=== PATIENT | male | born 1955 | race Caucasian/White ===

== ENCOUNTER → 2019-12-11 | Day surgery (SDC) | payer OTHER ==
[~2019-12-11] MED LIST: FENTANYL CITRATE/PF 100MCG/2 ML INJ ONE; MIDAZOLAM HCL 2 MG/2 ML VIAL ONE; OR PHACO EYE KIT ONE; PREOP PHACO EYE KIT ONE; PROTANDIM NRF PO
[2019-12-11 15:00] VITALS: BP 135/92
--- OUTSIDE RECORDS SUMMARY | 2019-12-11 19:39 | XMS REPORT | Encounter Summary ---
Author Organization Unknown Address [address] [place] [address] Phone [phone] Care Team Providers Care Exhibits Manager Name Role Phone Dr. Joaquin Baker 3 [phone] Shade Bowie MD 3 [phone] Flavio John MD 111 [phone] Reason for Visit UTI Instructions 1. Acute urinary tract infection urinalysis, dipstick culture, urine 2. Body mass index 25-29 - overweight learning about healthy weight 3. Raised prostate specific antigen PSA, serum or plasma Discussion Note await lab/will repeat psa 1 month if remains elevated Plan of Care Patient Instructions advised ua normal Reminders Provider Appointments None recorded. Lab Urinalysis, Dipstick 10/01/2019 [facility] Culture, Urine 10/01/2019 [facility] PSA, Serum or Plasma 10/01/2019 [facility] Referral None recorded. Procedures None recorded. Surgeries None recorded. Imaging None recorded. Medications No Medications Reported Medications Administered None recorded. Vitals Height Weight BMI Blood Pressure 5 ft 11.6 in 182.6 lbs 25 kg/m2 120/70 mm[Hg] Results Lab Results Date Name Specimen Result Interpretation Description Value Range Status Address 09/18/2019 Urinalysis, Dipstick Color Color obi [facility]: [address] [place] Color Appearance clear [facility]: [address] [place] Color Glucose negative [facility]: [address] [place] Color Bilirubin negative [facility] [address] [place] Color Ketones negative [facility] [address] [place] Color Specific [place] 1.020 [facility] [address] [place] Color Blood trace [facility] [address] [place] Color PH 5.5 [facility]: [address] [place] Color Protein negative [facility]: [address] [place] Color Urobilinogen 0.2 [facility]: [address] [place] Color Nitrites negative [facility]: [address] [place] Color Leukocytes small [facility]: [address] [place] 09/17/2019 PSA, Serum or Plasma High PSA, Total 16.85 NG/mL <4.00 NG/mL Final [facility]: [address] [address], [place] 09/17/2019 Culture, Urine ABNORMAL Culture, Urine, Routine see note Final [facility]: [address] [address], [place] Urinalysis, Dipstick Color Glucose negative [facility]: [address] [place] Color Bilirubin negative [facility]: [address] [place] Color Ketones negative [facility]: [address] [place] Color Specific Gary 1.020 [facility] [address] [place] Color Blood negative [facility]: [address] [place] Color PH 6.0 [facility]: [address] [place] Color Protein negative [facility]: [address] [place] Color Urobilinogen 0.2 [facility]: [address] [place] Color Nitrites negative [facility]: [address] [place] Color Leukocytes negative [facility]: [address] [place] Allergies Code Code System Name Reaction Severity Status Onset NKDA Problems Name Status Onset Date Source Scoliosis Deformity of Spine Active 07/26/2018 Procedures Date Name Performed by Colonoscopy Information not available Vaccine List None recorded. Social History Tobacco Smoking Status Never Smoker Past Encounters 10/01/2019 Acute Urinary Tract Infection; Body Mass Index 25-29 - Overweight; Raised Prostate Specific Antigen Joaquin Baker MD: [address] [place] [phone], Ph. 09/20/2019 Screening for Malignant Neoplasm of Colon; Body Mass Index 25-29 - Overweight; Influenza Vaccination Declined; Acute Urinary Tract Infection; Raised Prostate Specific Antigen Joaquin Baker MD: [address] [place] [phone], Ph. 09/17/2019 Body Mass Index 25-29 - Overweight; Prostatism; Bilateral Cataracts; Pigmented Skin Lesion Joaquin Baker MD: [address] [place] [phone], Ph. History of Present Illness Note:f/u uti >psa,completed course abx -asymptomatic Review of Systems:ROS as noted in the HPI Review of Systems None recorded. Physical Exam Brief Abdominal Pain Exam Reported By: Patient Constitutional: General Appearance: well-developed, well-nourished, healthy-appearing, alert, oriented, NAD, mucous membranes moist Cardiovascular: Heart Auscultation: S1 present, S2 present, no murmurs, no click Lungs: Lungs: clear to auscultation bilaterally, no wheezing, no crackles Abdomen: Inspection and Palpation: soft, bowel sounds 4 quadrants, no tenderness, non-distended
--- OUTSIDE RECORDS SUMMARY | 2019-12-11 19:39 | XMS REPORT | Encounter Summary ---
Author Organization Unknown Address [address] [place] [address] Phone [phone] Care Team Providers Care Student Ambassador Name Role Phone Dr. Joaquin Baker 3 [phone] Shade Bowie MD 3 [phone] Flavio John MD 111 [phone] Reason for Visit lab follow-up Instructions 1. Screening for malignant neoplasm of colon fecal occult blood, stool 2. Body mass index 25-29 - overweight learning about healthy weight 3. Influenza vaccination declined 4. Acute urinary tract infection Levaquin 500 mg tablet 5. Raised prostate specific antigen Discussion Note deferred advised urology consult Plan of Care Patient Instructions meds as directed/rtc 2 weeks Reminders Provider Appointments Return to Office on or around 10/01/2019 Joaquin Baekr MD Lab Fecal Occult Blood, Stool 09/20/2019 [facility] Referral None recorded. Procedures None recorded. Surgeries None recorded. Imaging None recorded. Medications Name Start Date Flomax 0.4 mg capsule Take 1 capsule every day by oral route. Levaquin 500 mg tablet Take 1 tablet every 24 hours by oral route. Medications Administered None recorded. Vitals Height Weight BMI Blood Pressure 5 ft 11.6 in 185.4 lbs 25.4 kg/m2 108/72 mm[Hg] Results Lab Results Date Name Specimen Result Interpretation Description Value Range Status Address 09/18/2019 Urinalysis, Dipstick Color Color obi [facility]: [address] [place] Color Appearance clear [facility]: [address] [place] Color Glucose negative [facility]: [address] [place] Color Bilirubin negative [facility]: [address] [place] Color Ketones negative [facility] [address] [place] Color Specific [place] 1.020 [facility] [address] [place] Color Blood trace [facility]: [address] [place] Color PH 5.5 [facility]: [address] [place] Color Protein negative [facility]: [address] [place] Color Urobilinogen 0.2 [facility]: [address] [place] Color Nitrites negative [facility]: [address] [place] Color Leukocytes small [facility]: [address] [place] 09/17/2019 PSA, Serum or Plasma High PSA, Total 16.85 NG/mL <4.00 NG/mL Final [facility] [address] 09/17/2019 Culture, Urine ABNORMAL Culture, Urine, Routine see note [facility] Laboratory: [address] [address], [place] Allergies Code Code System Name Reaction Severity Status Onset NKDA Problems Name Status Onset Date Source Scoliosis Deformity of Spine Active 07/26/2018 Procedures Date Name Performed by Colonoscopy Information not available Vaccine List None recorded. Social History Tobacco Smoking Status Never Smoker Past Encounters 09/20/2019 Screening for Malignant Neoplasm of Colon; Body Mass Index 25-29 - Overweight; Influenza Vaccination Declined; Acute Urinary Tract Infection; Raised Prostate Specific Antigen Joaquin Baker MD: [address] [place] [phone], Ph. 09/17/2019 Body Mass Index 25-29 - Overweight; Prostatism; Bilateral Cataracts; Pigmented Skin Lesion Joaquin Baker MD: [address] [place] [phone], Ph. History of Present Illness Note:f/u lab> psa 16.85<div> u c/s-enterococcus uti</div> Review of Systems:ROS as noted in the HPI Review of Systems Notes: f/u lab >psa Physical Exam Cardiology Exam Reported By: Patient Constitutional: General Appearance: well-developed, appears stated age. Level of Distress: comfortable Psychiatric: Mental Status: alert, normal affect. Orientation: oriented to time, place, and person. Insight: good judgment Eyes: Lids and Conjunctivae: non-injected, anicteric, no discharge, no pallor, no arcus senilis, no xanthelasma. Pupils: PERRLA Neck: Neck: supple, trachea midline, no masses, FROM. Carotid Arteries: bilateral normal upstroke, no bruits, no thrills. Cervical Lymph Nodes: non tender, not enlarged. Thyroid: not enlarged, non tender, no nodules Lungs: Respiratory Effort: unlabored. Chest Exam: normal curvature, no thoracic deformity, no chest wall tenderness. Percussion: resonant. Auscultation: clear, no wheezing, no rales, no rhonchi Cardiovascular: Precordial Exam: non displaced focal PMI, no heaves, no precordial thrills. Rate And Rhythm: regular. Heart Sounds: normal S1, physiologically split S2, no rub, no gallop, no click. Systolic Murmur: not heard. Diastolic Murmur: not heard. Extremities: no cyanosis, no edema, no peripheral signs of emboli Skin: Inspection and Palpation: warm and dry. Nails: no clubbing
--- OUTSIDE RECORDS SUMMARY | 2019-12-11 19:39 | XMS REPORT | Encounter Summary ---
Author Organization Unknown Address [address] [place] [address] Phone [phone] Care Team Providers Care Fermenter Helper Name Role Phone Dr. Joaquin Baker 3 [phone] Shade Bowie MD 3 [phone] Flavio John MD 111 [phone] Reason for Visit Annual physical - male Instructions 1. Body mass index 20-24 - normal 2. Adult health examination electrocardiogram 3. Influenza vaccination declined 4. Vaccine refused by patient Discussion Note patient left office as above Patient educational handouts: No information available. Plan of Care Reminders Provider Appointments RESEARCH MANAGER/EST CPX 11/21/2019 1:30PM Joaquin Baker MD Lab None recorded. Referral None recorded. Procedures None recorded. Surgeries None recorded. Imaging Electrocardiogram 11/14/2019 [facility] Medications No Medications Reported Medications Administered None recorded. Vitals Height Weight BMI Blood Pressure 5 ft 11.6 in 169 lbs 23.2 kg/m2 127/81 mm[Hg] Results Lab Results None recorded. Allergies Code Code System Name Reaction Severity Status Onset NKDA Problems Name Status Onset Date Source Scoliosis Deformity of Spine Active 07/26/2018 Procedures Date Name Performed by Colonoscopy Information not available 11/14/2019 Electrocardiogram [facility] [address] [place] [address] (Work Place) Vaccine List None recorded. Social History Tobacco Smoking Status Never Smoker Past Encounters 11/14/2019 Body Mass Index 20-24 - Normal; Adult Health Examination; Influenza Vaccination Declined; Vaccine Refused by Patient Joaquin Baker MD: [address] [place] [address], Ph. History of Present Illness Note:here for ahe /pre op cataract surgery<div>requesting referral to store administrator -prophylaxis during preliminary conversation</div><div>advised this would nor be forthcoming,stated he did not like doctors and would find another physician</div><div>
</div> Review of Systems None recorded. Physical Exam None recorded.
--- OUTSIDE RECORDS SUMMARY | 2019-12-11 19:39 | XMS REPORT | Encounter Summary ---
Author Organization Unknown Address [address] [place] [address] Phone [phone] Care Team Providers Care Spin Tank Tender Name Role Phone Dr. Joaquin Baker 3 [phone] Shade Bowie MD 3 [phone] Reason for Visit other - see typed reason Instructions 1. Body mass index 25-29 - overweight learning about healthy weight 2. Prostatism PSA, serum or plasma culture, urine Flomax 0.4 mg capsule urinalysis, dipstick 3. Bilateral cataracts ophthalmology referral 4. Pigmented skin lesion dermatology referral Discussion Note will refer to dermatology/ophthamology Plan of Care Patient Instructions start flomax /rtc 2 weeks Reminders Provider Appointments Return to Office on or around 10/01/2019 Joaquin Baker MD Lab PSA, Serum or Plasma 09/17/2019 [facility] Culture, Urine 09/17/2019 [facility] Urinalysis, Dipstick 09/17/2019 [facility] Referral Ophthalmology Referral 09/17/2019 Flavio John MD Dermatology Referral 09/17/2019 Christiano Valdovinos MD Procedures None recorded. Surgeries None recorded. Imaging None recorded. Medications Name Start Date Flomax 0.4 mg capsule Take 1 capsule every day by oral route. Medications Administered None recorded. Vitals Height Weight BMI Blood Pressure 5 ft 11.6 in 187.6 lbs 25.7 kg/m2 121/84 mm[Hg] Results Lab Results None recorded. Allergies Code Code System Name Reaction Severity Status Onset NKDA Problems Name Status Onset Date Source Scoliosis Deformity of Spine Active 07/26/2018 Procedures Date Name Performed by 11/07/1997 Colonoscopy Information not available Vaccine List None recorded. Social History Tobacco Smoking Status Never Smoker Past Encounters 09/17/2019 Body Mass Index 25-29 - Overweight; Prostatism; Bilateral Cataracts; Pigmented Skin Lesion Joaquin Baker MD: [facility] [place] [address], Ph. History of Present Illness Note:2 week h/o incomplete bladder emptying/hesitancy /post micturition dribbling/nocturia<div>requesting opthalmology consult-cataracts </div><div> dermatology -pigmented moles</div> Review of Systems:ROS as noted in the HPI Review of Systems None recorded. Physical Exam General Adult Exam (male) Reported By: Patient Male : Prostate: enlarged Skin: Inspection and palpation: ; pigmented moles face upper back
--- OUTSIDE RECORDS SUMMARY | 2019-12-11 19:39 | XMS REPORT | Encounter Summary ---
Author Organization Unknown Address [address] [place] [address] Phone [phone] Care Team Providers Care Furniture Salesperson Name Role Phone Dr. Joaquin Baker 3 [phone] Shade Bowie MD 3 [phone] Flavio John MD 111 [phone] Reason for Visit skin leison/mole; other - see typed reason Instructions 1. Adult health examination CMP, serum or plasma lipid panel, serum CBC w/ auto diff TSH, serum or plasma 2. Skin lesion dermatology referral 3. Raised prostate specific antigen PSA, serum or plasma Discussion Note await lab,will refer to lumber trimmer Patient educational handouts: No information available. Plan of Care Reminders Provider Appointments Est Patient 12/05/2019 1:30PM Joaquin Baker MD Lab CMP, Serum or Plasma 11/21/2019 [facility] Laboratory Lipid Panel, Serum 11/21/2019 [facility] Laboratory CBC W/ Auto Diff 11/21/2019 [facility] Laboratory TSH, Serum or Plasma 11/21/2019 [facility] PSA, Serum or Plasma 11/21/2019 [facility] Referral Dermatology Referral 11/21/2019 Christiano Valdovinos MD Procedures None recorded. Surgeries None recorded. Imaging None recorded. Medications Name Start Date [place] 3 Q.O.D Probiotic 3-4 TIMES A WEEK Medications Administered None recorded. Vitals Height Weight BMI Blood Pressure 5 ft 11.6 in 120/76 mm[Hg] Results Lab Results Date Name Specimen Result Interpretation Description Value Range Status Address 11/14/2019 Electrocardiogram Rate & Rhythm [facility]: [address], [place] Qrs [facility]: [address], [place] Interval [facility]: [address], [place] QRS Duration [facility]: [address], [place] QT Interval [facility]: [address], [place] Allergies Code Code System Name Reaction Severity Status Onset NKDA Problems Name Status Onset Date Source Scoliosis Deformity of Spine Active 07/26/2018 Procedures Date Name Performed by Colonoscopy Information not available 11/14/2019 Electrocardiogram [facility] [address] [place] [phone] (Work Place) Vaccine List None recorded. Social History Tobacco Smoking Status Never Smoker Past Encounters 11/21/2019 Adult Health Examination; Skin Lesion; Raised Prostate Specific Antigen Joaquin Baker MD: [address] [place] [phone], Ph. 11/14/2019 Body Mass Index 20-24 - Normal; Adult Health Examination; Influenza Vaccination Declined; Vaccine Refused by Patient Joaquin Baker MD: [address] [place] [phone], Ph. History of Present Illness Note:here for ahe <div>10/01 psa 3.43<div><div>10/02 19 cologuard-neg</div>< /div></div><div>c/o facial pigmented mole/numerous back moles </div> Review of Systems:ROS as noted in the HPI Review of Systems None recorded. Physical Exam General Adult Exam (male) Reported By: Patient Constitutional: General Appearance: healthy-appearing, well-nourished, well-developed. Level of Distress: NAD. Ambulation: ambulating normally Psychiatric: Insight: good judgement. Mental Status: active and alert, normal mood, normal affect. Orientation: to time, to place, to person. Memory: recent memory normal, remote memory normal Head: Head: normocephalic, atraumatic Eyes: Lids and Conjunctivae: non-injected, no discharge, no pallor. Pupils: PERRLA. Corneas: grossly intact. Fundoscopic: grossly normal except where noted, normal optic discs, normal vessels, no exudates, no hemorrhages. EOM: EOMI. Lens: clear. Sclerae: non-icteric. Vision: peripheral vision grossly intact, acuity grossly intact ENMT: Ears: no lesions on external ear, EACs clear, TMs clear, TM mobility normal. Hearing: no hearing loss, Rinne AC>BC. Nose: no lesions on external nose, nares patent, no septal deviation, nasal passages clear, no sinus tenderness, no nasal discharge. Lips, Teeth, and Gums: no mouth or lip ulcers, no bleeding gums, normal dentition. Oropharynx: moist mucous membranes, no erythema, no exudates, tonsils not enlarged Neck: Neck: supple, trachea midline, no masses, FROM. Lymph Nodes: no cervical LAD, no supraclavicular LAD, no axillary LAD, no inguinal LAD. Thyroid: no enlargement, non-tender, no nodules Lungs: Respiratory effort: no dyspnea. Percussion: no dullness, flatness, or hyperresonance. Auscultation: breath sounds normal, good air movement, CTA except as noted, no wheezing, no rales/crackles, no rhonchi Cardiovascular: Apical Impulse: not displaced. Heart Auscultation: RRR, normal S1, normal S2, no murmurs, no rubs, no gallops. Neck vessels: no carotid bruits. Pulses including femoral / pedal: normal throughout Abdomen: Bowel Sounds: normal. Inspection and Palpation: soft, non-distended, no tenderness, no guarding, no rebound tenderness, no masses, no CVA tenderness. Liver: non-tender, no hepatomegaly. Spleen: non-tender, no splenomegaly. Hernia: none palpable Male : Penis: no lesions, no discharge. Scrotum: no swelling, no tenderness. Testes: palpable bilaterally, not enlarged. Prostate: symmetrical, not enlarged, non-tender, smooth / no nodules; prostate exam deferred as prior exam sep 2019 Musculoskeletal:: Motor Strength and Tone: normal, normal tone. Joints, Bones, and Muscles: normal movement of all extremities, no contractures, no bony abnormalities, no malalignment, no tenderness. Extremities: no cyanosis, no edema, no varicosities, no palpable cord Neurologic: Gait and Station: normal gait, normal station. Cranial Nerves: grossly intact. Sensation: grossly intact, monofilament test intact. Reflexes: DTRs 2+ bilaterally throughout. Coordination and Cerebellum: triprt-xn-umrq intact, no tremor Skin: Inspection and palpation: no rash, no abnormal nevi, no ulcer, no induration, no nodules, good turgor, no jaundice, lesion; R facial pigmented mole,back moles. Nails: normal Back: Thoracolumbar Appearance: normal curvature
--- OUTSIDE RECORDS SUMMARY | 2019-12-11 19:39 | XMS REPORT | Encounter Summary ---
Author Organization Unknown Address [address] [place] [address] Phone [phone] Care Team Providers Care Facilities Project Manager Name Role Phone Dr. Joaquin Baker 3 [phone] Shade Bowie MD 3 [phone] Reason for Visit Bilateral foot problem Instructions 1. Immunization refused 2. Body mass index 20-24 - normal 3. Foot pain podiatry referral XR, foot, 3 or more view 4. Tinea pedis Discussion Note will refer to sample color maker Patient educational handouts: No information available. Plan of Care Patient Instructions otc topical meds for athletes foot Reminders Provider Appointments None recorded. Lab None recorded. Referral Podiatry Referral 02/21/2019 Procedures None recorded. Surgeries None recorded. Imaging XR, Foot, 3 or More View 02/21/2019 Medications No Medications Reported Medications Administered None recorded. Vitals Height Weight BMI Blood Pressure 5 ft 11.6 in 181.6 lbs 24.9 kg/m2 120/78 mm[Hg] Lab Results None recorded. Allergies Code Code System Name Reaction Severity Status Onset NKDA Problems Name Status Onset Date Source Scoliosis Deformity of Spine Active 07/26/2018 Procedures Date Name Performed by 11/07/1997 Colonoscopy Information not available 02/21/2019 XR, Foot, 3 or More View Information not available Vaccine List None recorded. Social History Smoking Status Never Smoker Past Encounters 02/21/2019 Immunization Refused; Body Mass Index 20-24 - Normal; Foot Pain; Tinea Pedis Joaquin Baker MD: [address] [place] [address], Ph. History of Present Illness Note:1 yr h/o foot discomfort,feels toes webbing,uses otc meds for t.pedis Review of Systems:ROS as noted in the HPI Review of Systems None recorded. Physical Exam Musculoskeletal and Joint Exam Reported By: Patient Musculoskeletal System: Right Foot: good ROM, no objective synovitis, no tenderness, no warmth, no erythema; t .pedis,no m/s loss. Left Foot: good ROM, no objective synovitis, no tenderness, no warmth, no erythema; t, pedis,no m/s loss
== END | disposition home or self-care (01) ==
LOC: OR 10:45
PROVIDERS: ATTEND Ophthalmology
DX: H25.11 Age-related nuclear cataract, right eye (principal); M41.9 Scoliosis, unspecified
CPT/HCPCS: J2250; J3010; V2632